=== PATIENT | male | born 1985 | race Caucasian/White ===

== ENCOUNTER 2018-06-29 11:21 | Emergency (ER) | payer SELFPAY ==
[~2018-06-29] VITALS: Ht 182.9 cm; Wt 86.4 kg
[2018-06-29 11:26] VITALS: Ht 182.9 cm; Wt 86.4 kg
[2018-06-29] MEDS ORDERED: PREDNISONE20 MG PO (12:15)
[2018-06-29] MEDS ORDERED: TORADOL10 MG PO (12:15)
[2018-06-29 12:20] VITALS: BP 130/84
== END 2018-06-29 12:10 | disposition home or self-care (01) ==
LOC: D.ER 11:21
DX: M65.842 Other synovitis and tenosynovitis, left hand (principal); M65.841 Other synovitis and tenosynovitis, right hand; M79.642 Pain in left hand; M79.641 Pain in right hand; R22.43 Localized swelling, mass and lump, lower limb, bilateral; F17.200 Nicotine dependence, unspecified, uncomplicated